=== PATIENT | male | born 1970 | race Native Hawaiian/Other Pacific Islander ===

== ENCOUNTER 2021-12-24 14:14 | Outpatient (CLI) | payer OTHER | END 2021-12-24 19:02 | disposition home or self-care (01) | LOC: MRI 14:14 | PROVIDERS: ATTEND Nurse Practitioner | DX: M54.16 Radiculopathy, lumbar region (principal) ==

== ENCOUNTER 2023-05-18 12:22 | Outpatient (CLI) | payer OTHER | END 2023-05-18 21:56 | disposition home or self-care (01) | LOC: MRI 12:22 | PROVIDERS: ATTEND Nurse Practitioner | DX: M54.12 Radiculopathy, cervical region (principal) ==